=== PATIENT | male | born 1985 | race Caucasian/White ===

== ENCOUNTER 2019-08-29 02:54 | Emergency (ER) | payer OTHER ==
[~2019-08-29] VITALS: Ht 177.8 cm; Wt 136.1 kg
[2019-08-29 03:07] VITALS: BP 162/82
[2019-08-29] MEDS ORDERED: IBUPROFEN600 MG ORAL (03:16)
[2019-08-29 03:19] VITALS: BP 162/82
--- NOTE | 2019-08-29 03:21 | Emergency Room Report ---
History of Present Illness General Chief Complaint: Sore Throat Source: Patient Present Illness HPI Disclaimer: Please note that this report is being documented using [employer] technology. This can lead to erroneous entry secondary to incorrect interpretation by the dictating instrument. HPI: 34-year-old male presents for evaluation of abnormal sensation in his throat. Began yesterday evening. He describes a scratchy and raspiness and an intermittent numbness in the throat. Denies any throat closure sensation, swelling, difficulty breathing, wheezing, difficulty speaking, swallowing, chewing, fever, chills, nasal congestion, postnasal drip, cough, nausea, vomiting or other changes in his health. No known sick contacts. No recent travel. He has been otherwise in his usual state of health. Tried to reach his PMD but was unsuccessful. He was scared that if he were to fall asleep his throat might swell up overnight and he would have difficulty breathing. No history of asthma or other medical conditions reported. PMH: Denies PSH: Denies Allergies: Denies Social Hx: Denies COVID-19 risk:Contact w/high r: No COVID-19 risk:Travel to affect: No Has patient experienced galan: No Allergies: Coded Allergies: No Known Allergies (Unverified , 08/29/19) Nursing Documentation-PMH Past Medical History: No Stated History Review of Systems All Other Systems: negative except mentioned in HPI Physical Exam Vital Signs Date Time Temp Pulse Resp B/P (MAP) Pulse Ox O2 Delivery O2 Flow Rate FiO2 08/29/19 02:57 97.7 92 18 162/82 (108) 95 Room Air General: Awake and alert, no acute distress HEENT: NC/AT. EOMI. uvula midline. Tonsils are 2+ and nonobstructing. Mild pharyngeal erythema but no ulcers, no purulent drainage, no exudate, no edema. No stridor. Phonation is normal. No submandibular lymphadenopathy, no cervical lymphadenopathy. Resp: Normal work of breathing Skin: Intact. No abrasions, laceration or rash over the exposed skin MSK: Normal tone and bulk. Moving all extremities. No obvious deformity. Neuro: Awake and alert. Mentating appropriately Medical Decision Making Diagnostic Impression: Primary Impression: Sore throat ER Course 34-year-old male presents for evaluation of throat discomfort. Differential includes was not limited to viral syndrome, pharyngitis, tonsillitis, upper respiratory infection. Patient is well-appearing, stable vital signs, afebrile , no other symptoms reported. May be the beginning of a pharyngitis or early viral syndrome. Does not require acute imaging or labs at this time. Instructed to continue isolation precautions for the next 2 weeks. Will use NSAIDs for pain and swelling as needed. We will follow-up with his PMD in the next few days. Instructed to return to the emergency room with any new or worsening symptoms. He understands and agrees with this treatment plan will be discharged home. Last Vital Signs Date Time Temp Pulse Resp B/P (MAP) Pulse Ox O2 Delivery O2 Flow Rate FiO2 08/29/19 03:07 97.7 92 18 162/82 95 Room Air Disposition: HOME, SELF-CARE Condition: Stable Scripts Ibuprofen* (MOTRIN*) 600 Mg Tablet 600 MG ORAL Q8H PRN for For Pain, #30 TAB 0 Refills Prov: Yehuda Espinzoa MD 08/29/19 Referrals: [facility],REFERRING (PCP) Thelma Younger Comp. [facility] Patient Instructions: Sore Throat Additional Instructions: Please follow-up with your primary care doctor in the next 1 to 3 days to discuss this emergency department visit and for reevaluation. If you have any new or worsening symptoms please return to the emergency department for reevaluation. Please note that this report is being documented using [employer] technology. This can lead to erroneous entry secondary to incorrect interpretation by the dictating instrument. Yehuda Espinoza MD Aug 29, 2019 03:21
== END 2019-08-29 03:19 | disposition home or self-care (01) ==
LOC: EMR 03:16
DX: R07.0 Pain in throat (principal)
CPT/HCPCS: 99282